=== PATIENT | female | born 1975 | race Caucasian/White ===

== ENCOUNTER → 2016-06-20 | Outpatient (CLI) | payer OTHER ==
[2016-06-20 17:41] LABS: THYROID PEROXIDASE ANTIBODY < 28.0 U/ML (<60.0)
[2016-06-20 17:48] LABS: MEAN CORPUSCULAR HEMOGLOBIN 31.5 pg (27.0-33.0); MEAN CORPUSCULAR HGB CONC 32.4 g/dl (32.0-36.5); MEAN CORPUSCULAR VOLUME 97.1 fl (80.0-96.0); RED CELL DISTRIBUTION WIDTH 12.3 % (11.5-14.5); WHITE BLOOD COUNT 8.7 K/mm3 (4.0-10.0)
[2016-06-20 18:25] LABS: ALBUMIN 3.6 GM/DL (3.2-5.2); ALBUMIN/GLOBULIN RATIO 1.16 (1.00-1.93); ALKALINE PHOSPHATASE 148 U/L (45-117); ALT/SGPT 62 U/L (12-78); ANION GAP 9 MEQ/L (8-16); AST/SGOT 30 U/L (15-37); BILIRUBIN,TOTAL 0.3 MG/DL (0.2-1.0); BLOOD UREA NITROGEN 12 MG/DL (7-18); CALCIUM LEVEL 8.5 MG/DL (8.5-10.1); CARBON DIOXIDE LEVEL 28 MEQ/L (21-32); CHLORIDE LEVEL 104 MEQ/L (98-107); CREATININE FOR GFR 0.85 MG/DL (0.55-1.02); GLOMERULAR FILTRATION RATE > 60.0 (>58); GLUCOSE, FASTING 144 MG/DL (70-105); POTASSIUM SERUM 4.3 MEQ/L (3.5-5.1); SODIUM LEVEL 141 MEQ/L (136-145); TOTAL PROTEIN 6.7 GM/DL (6.4-8.2)
== END ==
LOC: M SMT 14:00
PROVIDERS: ATTEND Allergy & Immunology Allergy
DX: L50.1 Idiopathic urticaria (principal)

== ENCOUNTER → 2017-03-10 | Outpatient (CLI) | payer OTHER | LOC: M RAD 11:41 | DX: Z12.31 Encounter for screening mammogram for malignant neoplasm of breast (principal) ==

== ENCOUNTER 2017-04-13 07:34 | Day surgery (SDC) | payer OTHER ==
[~2017-04-13 07:34] MED LIST: LIDOCAINE 1% MDV 20ML VIAL As Ordered; LIDOCAINE 2% INJ 100 MG/5 ML SDV (FOR ANES.) As Ordered; PROPOFOL 200 MG/20 ML VIAL As Ordered
[2017-04-13] MEDS: NS 1,000 ML IV (07:59)
[2017-04-13] MEDS ORDERED: PROPOFOL 200 MG/20 ML VIAL As Ordered (09:06)
[2017-04-13] MEDS ORDERED: LIDOCAINE 1% MDV 20ML VIAL As Ordered (09:06)
== END 2017-04-13 09:52 | disposition home or self-care (01) ==
LOC: M OPP 07:34
DX: K64.8 Other hemorrhoids (principal); K59.00 Constipation, unspecified; R63.4 Abnormal weight loss; Z98.0 Intestinal bypass and anastomosis status; E28.2 Polycystic ovarian syndrome; D68.61 Antiphospholipid syndrome; F90.9 Attention-deficit hyperactivity disorder, unspecified type; G43.909 Migraine, unspecified, not intractable, without status migrainosus; M19.90 Unspecified osteoarthritis, unspecified site; F43.10 Post-traumatic stress disorder, unspecified; Z79.82 Long term (current) use of aspirin; Z79.899 Other long term (current) drug therapy; Z88.8 Allergy status to other drugs, medicaments and biological substances; Z91.011 Allergy to milk products; Z91.018 Allergy to other foods; Z98.84 Bariatric surgery status
CPT/HCPCS: 45378

== ENCOUNTER → 2017-07-23 | Outpatient (REF) | payer OTHER ==
[2017-07-23 13:33] LABS: FREE T4 1.29 NG/DL (0.76-1.46); THYROID STIMULATING HORMONE 0.766 uIU/ML (0.358-3.740)
== END ==
LOC: M LABDRAW1 12:50
DX: R94.6 Abnormal results of thyroid function studies (principal)
CPT/HCPCS: 84443

== ENCOUNTER → 2018-09-29 | Outpatient (REF) | payer OTHER ==
[~2018-09-29] MED LIST changes: +ADDE20CA3 PO; +ADDE30CA3 PO; +ASPI81TA26 PO; +ATOR1TAB21 PO; +BUPR1TAB52 PO; +DETR2CAP PO; +EPIP0.3I2 IJ; +FLON27.5; +GABA-843 PO; +LEVOTAB10 PO; -LIDOCAINE 1% MDV 20ML VIAL As Ordered; -LIDOCAINE 2% INJ 100 MG/5 ML SDV (FOR ANES.) As Ordered; +METF10004 PO; +OMEP40CA2 PO; +PRENTAB55 PO; +PROAAER10 INH; +PROP10TA56 PO; -PROPOFOL 200 MG/20 ML VIAL As Ordered; +SPIR50TA4 PO; +SUMA50TA2 PO; +TRAZ-252 PO; +VITA500046 PO; +VITA50005 PO
[2018-09-29 14:47] LABS: FREE T4 0.84 NG/DL (0.76-1.46); THYROID STIMULATING HORMONE 0.365 uIU/ML (0.358-3.740)
[2018-09-29 14:48] LABS: TOTAL 25(OH) VITAMIN D 35.9 NG/ML (30.0-100.0)
== END ==
LOC: M LABDRAW1 11:04
PROVIDERS: ATTEND Nurse Practitioner Family
DX: R94.6 Abnormal results of thyroid function studies (principal); E55.9 Vitamin D deficiency, unspecified

== ENCOUNTER 2022-02-28 07:36 | Emergency (ER) | payer OTHER ==
[~2022-02-28] VITALS: Ht 154.9 cm; Wt 105.5 kg
[~2022-02-28 07:36] MED LIST changes: +AMPH1CAP4 PO; +D 101000 PO; +GABA-282 PO; -GABA-843 PO; -OMEP40CA2 PO; +OMEP40CA4 PO; +VITA500045 PO; +XARE10TA PO
[2022-02-28] MEDS ORDERED: ACETAMINOPHEN 500 MG TAB PO ONE (09:00)
[2022-02-28] MEDS ORDERED: BUPR-69 (09:59)
[2022-02-28 10:51] VITALS: BP 122/82
== END 2022-02-28 11:01 | disposition home or self-care (01) ==
LOC: EDBD 07:36 → M ED 07:36
DX: S80.01XA Contusion of right knee, initial encounter (principal); S16.1XXA Strain of muscle, fascia and tendon at neck level, initial encounter; V47.5XXA Car driver injured in collision with fixed or stationary object in traffic accident, initial encounter; I10 Essential (primary) hypertension; E28.2 Polycystic ovarian syndrome; G40.89 Other seizures; F43.10 Post-traumatic stress disorder, unspecified; K58.9 Irritable bowel syndrome, unspecified; F10.10 Alcohol abuse, uncomplicated; Y92.410 Unspecified street and highway as the place of occurrence of the external cause; Z88.5 Allergy status to narcotic agent; Z91.011 Allergy to milk products; Z91.040 Latex allergy status; Z91.02 Food additives allergy status; Z79.02 Long term (current) use of antithrombotics/antiplatelets; Z79.4 Long term (current) use of insulin; Z79.899 Other long term (current) drug therapy

== ENCOUNTER → 2022-03-06 | Outpatient (CLI) | payer OTHER ==
[~2022-03-06] MED LIST changes: +BUPR-69
== END ==
LOC: M SOG 08:12
PROVIDERS: ATTEND Orthopaedic Surgery Adult Reconstructive Orthopaedic Surgery
DX: M25.561 Pain in right knee (principal)

== ENCOUNTER → 2022-04-25 | Outpatient (CLI) | payer OTHER | LOC: M PLAIMG 06:50 | PROVIDERS: ATTEND Orthopaedic Surgery Adult Reconstructive Orthopaedic Surgery | DX: M22.2X1 Patellofemoral disorders, right knee (principal); M22.41 Chondromalacia patellae, right knee ==

== ENCOUNTER → 2022-05-07 | Outpatient (CLI) | payer OTHER | LOC: M SOG 08:25 | PROVIDERS: ATTEND Orthopaedic Surgery Adult Reconstructive Orthopaedic Surgery | DX: S93.401A Sprain of unspecified ligament of right ankle, initial encounter (principal); X58.XXXA Exposure to other specified factors, initial encounter ==

== ENCOUNTER → 2022-07-18 | Outpatient (CLI) | payer OTHER | LOC: M WHC 10:04 | PROVIDERS: ATTEND Internal Medicine | DX: Z12.31 Encounter for screening mammogram for malignant neoplasm of breast (principal) ==